=== PATIENT | male | born 1935 | race Caucasian/White ===

== ENCOUNTER 2020-12-09 11:59 | Inpatient (IN) | payer MEDICARE, OTHER ==
[~2020-12-09] VITALS: Ht 177.8 cm; Wt 105.5 kg
[2020-12-09] MEDS ORDERED: INDOCYANINE GREEN 25 MG VIAL ONE (12:02)
[2020-12-09] MEDS ORDERED: BUPIVACAINE/PF 0.5% ONE ×2 (12:02→15:44)
[2020-12-09] MEDS ORDERED: EPINEPHRINE 1 MG/ML, 1ML ONE (12:02)
[2020-12-09] MEDS ORDERED: FINA5TAB4 PO (12:39)
[2020-12-09] MEDS ORDERED: METF500T17 PO (12:39)
[2020-12-09] MEDS ORDERED: EZET10TA70 PO (12:39)
[2020-12-09] MEDS ORDERED: potassium chloride PO (12:39)
[2020-12-09] MEDS ORDERED: ASPI81TA45 PO (12:39)
[2020-12-09] MEDS ORDERED: CARV6.2512 PO (12:39)
[2020-12-09] MEDS ORDERED: LISI-170 PO (12:39)
[2020-12-09] MEDS ORDERED: FURO20TA3 PO (12:39)
[2020-12-09] MEDS ORDERED: LEVO175T5 PO (12:39)
[2020-12-09] MEDS ORDERED: CLOP75TA PO (12:39)
[2020-12-09] MEDS ORDERED: TERA2CAP3 PO (12:39)
[2020-12-09] MEDS ORDERED: GABA600T7 PO (12:39)
[2020-12-09] MEDS ORDERED: CHLORHEXIDINE 15 ML UDC ONE (12:43)
[2020-12-09 12:50] VITALS: BP 124/70
[2020-12-09] MEDS ORDERED: CHLORHEXIDINE 15 ML UDC PO ONE (13:00)
[2020-12-09] MEDS ORDERED: LACTATED RINGERS 1,000 ML IV SCH (13:00)
[2020-12-09] MEDS ORDERED: PROPOFOL 50 ML ONE (13:18)
[2020-12-09 13:19] LABS: BASOPHILS % (AUTO) 1 % (0-1); EOSINOPHILS % (AUTO) 4 % (1-7); LYMPHOCYTES % (AUTO) 10 % (22-44); MEAN CORPUSCULAR HEMOGLOBIN 27.4 pg (27.5-34.5); MEAN CORPUSCULAR HGB CONC 33.5 g/dL (33.2-36.2); MEAN PLATELET VOLUME 7.3 fL (7.4-10.4); MONOCYTES % (AUTO) 7 % (2-9); NEUTROPHILS % (AUTO) 78 % (42-75); PLATELET COUNT 214 x10^3/uL (130-400); RED BLOOD COUNT 4.01 x10^6/uL (4.38-5.82); RED CELL DISTRIBUTION WIDTH 17.8 % (9.4-14.8)
[2020-12-09 13:24] LABS: INTERNATIONAL NORMALIZED RATIO 1.08 (0.93-1.1); PROTHROMBIN TIME 11.5 Seconds (9.6-11.5)
[2020-12-09 13:27] LABS: CALCIUM 9.1 mg/dL (8.5-10.1); CHLORIDE 107 mmol/L (98-107)
[2020-12-09 13:33] LABS: ALANINE AMINOTRANSFERASE 26 U/L (12-78); ALBUMIN 3.7 g/dL (3.4-5.0); ALKALINE PHOSPHATASE 90 U/L (45-117); ANION GAP 7 mmol/L (5-15); BILIRUBIN,TOTAL 0.5 mg/dL (0.2-1.0); CREATININE 1.17 mg/dL (0.7-1.3); TOTAL PROTEIN 7.5 g/dL (6.4-8.2)
[2020-12-09] MEDS ORDERED: BUPIVACAINE/PF-EPI 0.5% 1:200K INFIL ONE (13:49)
[2020-12-09] MEDS ORDERED: FENTANYL PF 250 MCG/5ML ONE (13:54)
[2020-12-09] MEDS ORDERED: PROPOFOL 10 MG/ML, 20ML ONE (14:41)
[2020-12-09] MEDS ORDERED: ONDANSETRON 2MG/ML, 2ML ONE (14:42)
[2020-12-09] MEDS ORDERED: DEXAMETHASONE 4 MG/ML, 1ML ONE (14:42)
[2020-12-09] MEDS ORDERED: ROCURONIUM 10MG/ML,5ML ONE ×2 (14:42)
[2020-12-09] MEDS ORDERED: CEFOTETAN 2 GM ONE (14:42)
[2020-12-09] MEDS ORDERED: FENTANYL PF 100 MCG/2ML ONE ×2 (16:25→17:16)
[2020-12-09] MEDS ORDERED: LORazepam 1MG TABLET PO PRN (17:00)
[2020-12-09] MEDS ORDERED: PROMETHAZINE 25 MG/ML, 1ML IVPush PRN (17:00)
[2020-12-09] MEDS ORDERED: DIAZEPAM 5 MG/ML, 2ML IVPush PRN (17:00)
[2020-12-09] MEDS ORDERED: OXYcodone 5 MG/5 ML ORAL.SOL UDC PO PRN (17:00)
[2020-12-09] MEDS ORDERED: ACETAMINOPHEN 100 ML IVPB SCH (17:00)
[2020-12-09] MEDS ORDERED: EPHEDRINE 50 MG/ML, 1ML IVPush PRN (17:00)
[2020-12-09] MEDS ORDERED: morphine SULFATE 10 MG/ML, 1ML IVPush PRN (17:00)
[2020-12-09] MEDS ORDERED: DIPHENHYDRAMINE 50 MG/ML, 1ML IVPush PRN ×2 (17:00→19:00)
[2020-12-09] MEDS ORDERED: EPHEDRINE 50 MG/ML, 1ML IM PRN (17:00)
[2020-12-09] MEDS ORDERED: ONDANSETRON 2MG/ML, 2ML IVPush PRN ×2 (17:00→19:00)
[2020-12-09] MEDS ORDERED: MEPERIDINE/PF 25MG/0.5ML IVPush PRN (17:00)
[2020-12-09] MEDS ORDERED: D5%-0.45NACL+KCL 20MEQ 1,000 ML IV SCH (17:00)
[2020-12-09] MEDS ORDERED: LABETALOL 5MG/ML, 20ML IV PRN (17:00)
[2020-12-09] MEDS ORDERED: OXYcodone 5 MG/5 ML ORAL.SOL UDC ONE (17:16)
[2020-12-09] MEDS ORDERED: ACETAMINOPHEN 650 MG/20.3 ML UDC ONE (17:16)
[2020-12-09] MEDS: FENTANYL PF 100 MCG/2ML IV PRN ×3 (17:27→17:39)
[2020-12-09] MEDS: ACETAMINOPHEN 500 MG TABLET PO SCH ×2 (17:30→23:12)
[2020-12-09] MEDS ORDERED: METHOCARBAMOL 1,000 MG in DEXTROSE 5% 100 ML IV PRN (17:30)
[2020-12-09] MEDS ORDERED: HYDROmorphone 1 MG/ML, 1ML INJ IVPush PRN (18:00)
[2020-12-09] MEDS ORDERED: CALCIUM CARBONATE 500 MG TAB.CHEW PO PRN (19:00)
[2020-12-09] MEDS ORDERED: LORazepam 2 MG/ML, 1ML IVPush PRN (19:00)
[2020-12-09] MEDS: INSULIN LISPRO 100 UNITS/ML, PEN SQ-INSULIN SCH (19:00)
[2020-12-09] MEDS ORDERED: DEXAMETHASONE 4 MG/ML, 1ML IVPush PRN (19:00)
[2020-12-09] MEDS ORDERED: HALOPERIDOL 5 MG/ML IVPush PRN (19:00)
[2020-12-09] MEDS ORDERED: DIPHENHYDRAMINE 25 MG CAPSULE PO PRN (19:00)
[2020-12-09 20:00] VITALS: BP 129/74
[2020-12-09] MEDS ORDERED: TRAZODONE 50MG TABLET PO PRN (21:00)
[2020-12-09] MEDS: metFORMIN 500 MG TABLET PO SCH (21:35)
[2020-12-09] MEDS: FINASTERIDE 5 MG TABLET PO SCH (21:35)
[2020-12-09] MEDS: CARVEDILOL 6.25 MG TABLET PO SCH (21:37)
[2020-12-09] MEDS: EZETIMIBE 10 MG TABLET PO SCH (21:37)
[2020-12-09] MEDS: OXYcodone IR 5MG TABLET PO PRN (23:12)
[2020-12-09] MEDS: GABAPENTIN 250 MG/5 ML ORAL SOL PO SCH (23:13)
[2020-12-10 00:11] VITALS: BP 148/85
[2020-12-10] MEDS: INSULIN LISPRO 100 UNITS/ML, PEN SQ-INSULIN SCH ×2 (01:00→06:31)
[2020-12-10 04:07] VITALS: BP 132/70
[2020-12-10 04:21] LABS: BASOPHILS % (AUTO) 0 % (0-1); EOSINOPHILS % (AUTO) 0 % (1-7); LYMPHOCYTES % (AUTO) 5 % (22-44); MEAN CORPUSCULAR HEMOGLOBIN 27.6 pg (27.5-34.5); MEAN CORPUSCULAR HGB CONC 33.6 g/dL (33.2-36.2); MEAN PLATELET VOLUME 7.2 fL (7.4-10.4); MONOCYTES % (AUTO) 5 % (2-9); NEUTROPHILS % (AUTO) 90 % (42-75); PLATELET COUNT 190 x10^3/uL (130-400); RED BLOOD COUNT 3.55 x10^6/uL (4.38-5.82); RED CELL DISTRIBUTION WIDTH 17.8 % (9.4-14.8)
[2020-12-10 04:27] LABS: ANION GAP 5 mmol/L (5-15); CALCIUM 8.5 mg/dL (8.5-10.1); CHLORIDE 108 mmol/L (98-107)
[2020-12-10] MEDS: LEVOTHYROXINE 175 MCG TABLET PO SCH (05:22)
[2020-12-10] MEDS: ACETAMINOPHEN 500 MG TABLET PO SCH ×4 (05:22→23:24)
[2020-12-10] MEDS: ASPIRIN 81 MG TABLET EC PO SCH (06:26)
[2020-12-10 07:53] VITALS: BP 114/61
[2020-12-10] MEDS: OXYcodone IR 5MG TABLET PO PRN ×3 (10:14→20:34)
[2020-12-10] MEDS: TERAZOSIN 2MG CAPSULE PO SCH (10:15)
[2020-12-10] MEDS: metFORMIN 500 MG TABLET PO SCH ×2 (10:15→17:21)
[2020-12-10] MEDS: ENOXAPARIN 40 MG/0.4 ML SQ SCH (10:21)
[2020-12-10] MEDS: CARVEDILOL 6.25 MG TABLET PO SCH ×2 (10:21→20:34)
[2020-12-10 14:40] VITALS: BP 129/72
[2020-12-10 19:05] VITALS: BP 133/84
[2020-12-10] MEDS: EZETIMIBE 10 MG TABLET PO SCH (20:34)
[2020-12-10] MEDS: GABAPENTIN 250 MG/5 ML ORAL SOL PO SCH (22:20)
[2020-12-10] MEDS: FINASTERIDE 5 MG TABLET PO SCH (22:20)
[2020-12-11 02:41] VITALS: BP 121/75
[2020-12-11 03:55] LABS: BASOPHILS % (AUTO) 1 % (0-1); EOSINOPHILS % (AUTO) 3 % (1-7); LYMPHOCYTES % (AUTO) 13 % (22-44); MEAN CORPUSCULAR HEMOGLOBIN 27.8 pg (27.5-34.5); MEAN CORPUSCULAR HGB CONC 33.9 g/dL (33.2-36.2); MEAN PLATELET VOLUME 7.4 fL (7.4-10.4); MONOCYTES % (AUTO) 7 % (2-9); NEUTROPHILS % (AUTO) 76 % (42-75); PLATELET COUNT 186 x10^3/uL (130-400); RED BLOOD COUNT 3.42 x10^6/uL (4.38-5.82); RED CELL DISTRIBUTION WIDTH 18.1 % (9.4-14.8)
[2020-12-11 04:01] LABS: ANION GAP 5 mmol/L (5-15); CALCIUM 8.1 mg/dL (8.5-10.1); CHLORIDE 106 mmol/L (98-107); CREATININE 0.95 mg/dL (0.7-1.3)
[2020-12-11] MEDS: ASPIRIN 81 MG TABLET EC PO SCH (05:36)
[2020-12-11] MEDS: ACETAMINOPHEN 500 MG TABLET PO SCH ×3 (05:36→17:07)
[2020-12-11] MEDS: LEVOTHYROXINE 175 MCG TABLET PO SCH (05:36)
[2020-12-11 08:00] VITALS: BP 130/73
[2020-12-11] MEDS: metFORMIN 500 MG TABLET PO SCH ×2 (08:31→17:07)
[2020-12-11] MEDS: TERAZOSIN 2MG CAPSULE PO SCH (08:32)
[2020-12-11] MEDS: CARVEDILOL 6.25 MG TABLET PO SCH ×2 (08:33→20:47)
[2020-12-11] MEDS: ENOXAPARIN 40 MG/0.4 ML SQ SCH (10:30)
[2020-12-11] MEDS ORDERED: OXYC5TAB2 PO (11:28)
[2020-12-11 13:08] VITALS: BP 128/68
[2020-12-11] MEDS: FINASTERIDE 5 MG TABLET PO SCH (20:47)
[2020-12-11] MEDS: EZETIMIBE 10 MG TABLET PO SCH (20:47)
[2020-12-11] MEDS: GABAPENTIN 250 MG/5 ML ORAL SOL PO SCH (20:47)
[2020-12-11 20:50] VITALS: BP 169/83
[2020-12-12] MEDS: ACETAMINOPHEN 500 MG TABLET PO SCH ×2 (00:49→06:44)
[2020-12-12 00:55] VITALS: BP 146/82
[2020-12-12] MEDS: ASPIRIN 81 MG TABLET EC PO SCH (06:44)
[2020-12-12] MEDS: LEVOTHYROXINE 175 MCG TABLET PO SCH (06:44)
[2020-12-12 09:48] VITALS: BP 158/89
[2020-12-12] MEDS: TERAZOSIN 2MG CAPSULE PO SCH (09:53)
[2020-12-12] MEDS: metFORMIN 500 MG TABLET PO SCH (09:53)
[2020-12-12] MEDS: CARVEDILOL 6.25 MG TABLET PO SCH (09:53)
[2020-12-12] MEDS: ENOXAPARIN 40 MG/0.4 ML SQ SCH (10:30)
== END 2020-12-12 11:36 | disposition home or self-care (01) | DRG 331 ==
LOC: ORIP 11:59 → 3WST 18:38 → 4NE 12-11 13:53 → DCLOUNGE 12-12 11:18
PROVIDERS: ADMIT Surgery; ATTEND Surgery
PROC: 8E0W4CZ Robotic Assisted Procedure of Trunk Region, Percutaneous Endoscopic Approach (ICD-10-PCS; 2020-12-09)
PROC: 0DTL4ZZ Resection of Transverse Colon, Percutaneous Endoscopic Approach (ICD-10-PCS; principal; 2020-12-09 14:00)
PROC: 5A09357 Assistance with Respiratory Ventilation, Less than 24 Consecutive Hours, Continuous Positive Airway Pressure (ICD-10-PCS; 2020-12-11)
DX: C18.4 Malignant neoplasm of transverse colon (principal); Z20.822 Contact with and (suspected) exposure to COVID-19
CPT/HCPCS: 36415; 80048; 80053; 82962; 85025; 85610; 86140; 87635; 88309; 93005; 94660; G0378; J0171; J1100; J1650; J2405; J2704; J3010; C1765; J2800; J7120

== ENCOUNTER 2021-02-10 18:36 | Inpatient (IN) | payer MEDICARE, OTHER ==
[~2021-02-10] VITALS: Ht 177.8 cm; Wt 101.9 kg
[~2021-02-10 18:36] MED LIST: ASPI81TA45 PO; CARV6.2512 PO; CLOP75TA PO; EZET10TA70 PO; FINA5TAB4 PO; FURO20TA3 PO; GABA600T7 PO; LEVO175T5 PO; LISI-170 PO; METF500T17 PO; OXYC5TAB2 PO; TERA2CAP3 PO; potassium chloride PO
--- NOTE | 2021-02-10 18:50 | NUR ---
PT BIB EMS FOR RECTAL BLEED, BRIGHT RED BLOOD, THAT STARTED TODAY. PT ALSO STATES HE HAS BEEN SOB WHEN EXERTING AND BEEN EXPERIENCING DIZZINESS. PT HX OF COLON CANCER AND HAD SIGNIFICANT PORTIONS OF BOWEL REMOVED 2 MONTHS AGO AT [facility]. PT CONNECTED TO VS EQUIPMENT. PT BELONGINGS AND CALL LIGHT WITHIN REACH.
--- NOTE | 2021-02-10 18:52 | NUR ---
REPORT TO YENI GRIGGS
--- NOTE | 2021-02-10 19:02 | NUR ---
BEDSIDE REPORT RECEIVED FROM MARITZA JAIME
--- NOTE | 2021-02-10 19:12 | NUR ---
ERP AT BEDSIDE
[2021-02-10] MEDS ORDERED: SODIUM CHLORIDE FLUSH 10ML SYR IVF ONE (19:30)
[2021-02-10] MEDS ORDERED: SODIUM CHLORIDE 0.9% 1,000ML IVBOLUS ONE (19:30)
[2021-02-10 19:43] LABS: BASOPHILS % (AUTO) 1 % (0-1); EOSINOPHILS % (AUTO) 1 % (1-7); LYMPHOCYTES % (AUTO) 8 % (22-44); MEAN CORPUSCULAR HEMOGLOBIN 27.1 pg (27.5-34.5); MEAN CORPUSCULAR HGB CONC 33.3 g/dL (33.2-36.2); MONOCYTES % (AUTO) 6 % (2-9); NEUTROPHILS % (AUTO) 85 % (42-75); PLATELET COUNT 210 x10^3/uL (130-400); RED BLOOD COUNT 3.83 x10^6/uL (4.38-5.82); RED CELL DISTRIBUTION WIDTH 18.5 % (9.4-14.8)
[2021-02-10 19:51] LABS: ALBUMIN 3.3 g/dL (3.4-5.0); ANION GAP 11 mmol/L (5-15); CALCIUM 8.5 mg/dL (8.5-10.1); CHLORIDE 106 mmol/L (98-107); CREATININE 1.36 mg/dL (0.7-1.3)
[2021-02-10 19:54] LABS: INTERNATIONAL NORMALIZED RATIO 1.07 (0.93-1.1); PROTHROMBIN TIME 11.4 Seconds (9.6-11.5)
[2021-02-10 20:10] LABS: <PLATELET ESTIMATE> ADEQUATE; <PLT MORPHOLOGY> NORMAL PLT MORPH; ANISOCYTOSIS 1+; MICROCYTOSIS 1+; OVALOCYTES 1+
[2021-02-10 20:13] LABS: ACANTHOCYTES 1+
--- NOTE | 2021-02-10 21:25 | NUR ---
HOSPITALIST AT BEDSIDE
[2021-02-10] MEDS ORDERED: MELATONIN 5 MG TABLET PO PRN (22:00)
[2021-02-10] MEDS ORDERED: ACETAMINOPHEN 500 MG TABLET PO PRN (22:00)
[2021-02-10] MEDS ORDERED: LABETALOL 5MG/ML, 20ML IVPush PRN (22:00)
[2021-02-10] MEDS ORDERED: POLYETHYLENE GLYCOL 17 GM PACKET PO PRN (22:00)
[2021-02-10] MEDS ORDERED: morphine SULFATE 10 MG/ML, 1ML IVPush PRN (22:00)
[2021-02-10] MEDS ORDERED: SODIUM CHLORIDE 0.9% 1,000 ML IV ONE (22:00)
[2021-02-10] MEDS ORDERED: SODIUM CHLORIDE FLUSH 10ML SYR IVF PRN (22:00)
[2021-02-10] MEDS ORDERED: GUAIFENESIN/DM 200-20MG, 10ML UDC PO PRN (22:00)
[2021-02-10] MEDS ORDERED: ONDANSETRON 2MG/ML, 2ML IVPush PRN (22:00)
[2021-02-10] MEDS ORDERED: TERA2CAP3 PO (22:09)
[2021-02-10] MEDS ORDERED: CLOP75TA52 PO (22:09)
[2021-02-10] MEDS ORDERED: GABA-827 PO (22:09)
[2021-02-10] MEDS ORDERED: POTA20TA14 PO (22:09)
[2021-02-10] MEDS ORDERED: CARV6.252 PO (22:09)
--- NOTE | 2021-02-10 22:45 | NUR ---
Pt to be admitted to [facility], room 494. Report called to JOLLY JAIME.
[2021-02-10 23:27] VITALS: BP 156/99
[2021-02-10] MEDS: LACTATED RINGERS 1,000 ML IV SCH (23:28)
[2021-02-11 00:35] VITALS: BP 158/96
[2021-02-11 05:36] LABS: BASOPHILS % (AUTO) 1 % (0-1); EOSINOPHILS % (AUTO) 3 % (1-7); LYMPHOCYTES % (AUTO) 14 % (22-44); MEAN CORPUSCULAR HEMOGLOBIN 27.1 pg (27.5-34.5); MEAN CORPUSCULAR HGB CONC 33.5 g/dL (33.2-36.2); MEAN PLATELET VOLUME 7.5 fL (7.4-10.4); MONOCYTES % (AUTO) 8 % (2-9); NEUTROPHILS % (AUTO) 75 % (42-75); PLATELET COUNT 217 x10^3/uL (130-400); RED BLOOD COUNT 3.73 x10^6/uL (4.38-5.82); RED CELL DISTRIBUTION WIDTH 17.9 % (9.4-14.8)
[2021-02-11 05:47] LABS: ANION GAP 8 mmol/L (5-15); CALCIUM 8.7 mg/dL (8.5-10.1); CHLORIDE 106 mmol/L (98-107)
[2021-02-11 05:48] LABS: CREATININE 0.97 mg/dL (0.7-1.3)
[2021-02-11 07:12] VITALS: BP 160/94
[2021-02-11] MEDS: LACTATED RINGERS 1,000 ML IV SCH (09:23)
[2021-02-11 13:46] VITALS: BP 162/80
[2021-02-11 21:13] VITALS: BP 176/129
[2021-02-11 21:24] VITALS: BP 170/130
[2021-02-11 21:50] VITALS: BP 154/93
[2021-02-12] VITALS (12 sets, daily range): BP systolic 99–153; BP diastolic 63–91
[2021-02-12] MEDS ORDERED: LORazepam 2 MG/ML, 1ML ONE (01:54)
[2021-02-12] MEDS: QUETIAPINE 25MG TABLET PO ONE ×2 (02:00→03:02)
[2021-02-12] MEDS ORDERED: LORazepam 2 MG/ML, 1ML IVPush ONE ×2 (02:00→03:30)
[2021-02-12] MEDS ORDERED: HALOPERIDOL 5 MG/ML IV ONE (04:00)
[2021-02-12 10:50] LABS: BASOPHILS % (AUTO) 1 % (0-1); EOSINOPHILS % (AUTO) 2 % (1-7); LYMPHOCYTES % (AUTO) 11 % (22-44); MEAN CORPUSCULAR HEMOGLOBIN 27.5 pg (27.5-34.5); MEAN CORPUSCULAR HGB CONC 33.8 g/dL (33.2-36.2); MEAN PLATELET VOLUME 7.6 fL (7.4-10.4); MONOCYTES % (AUTO) 7 % (2-9); NEUTROPHILS % (AUTO) 79 % (42-75); PLATELET COUNT 216 x10^3/uL (130-400); RED BLOOD COUNT 3.22 x10^6/uL (4.38-5.82); RED CELL DISTRIBUTION WIDTH 18.1 % (9.4-14.8)
[2021-02-12 11:00] LABS: INTERNATIONAL NORMALIZED RATIO 1.1 (0.93-1.1); PROTHROMBIN TIME 11.7 Seconds (9.6-11.5)
[2021-02-12] MEDS ORDERED: OMNIPAQUE 350 MG/ML, 100ML BOTTLE ONE (11:20)
[2021-02-12] MEDS ORDERED: PROPOFOL 10 MG/ML, 20ML ONE ×3 (14:54→15:19)
[2021-02-13 00:04] VITALS: BP 149/92
[2021-02-13 02:12] LABS: ALANINE AMINOTRANSFERASE 20 U/L (12-78); ALBUMIN 2.6 g/dL (3.4-5.0); ANION GAP 3 mmol/L (5-15); CALCIUM 8.3 mg/dL (8.5-10.1); CHLORIDE 110 mmol/L (98-107); CREATININE 0.83 mg/dL (0.7-1.3)
[2021-02-13 02:15] LABS: ALKALINE PHOSPHATASE 74 U/L (45-117); BILIRUBIN,TOTAL 0.5 mg/dL (0.2-1.0)
[2021-02-13 08:18] VITALS: BP 153/89
[2021-02-13 14:37] VITALS: BP 107/69
[2021-02-13 20:12] VITALS: BP 114/76
[2021-02-14 01:44] VITALS: BP 153/89
[2021-02-14 06:39] VITALS: BP 156/79
[2021-02-14 12:28] LABS: BASOPHILS % (AUTO) 1 % (0-1); EOSINOPHILS % (AUTO) 2 % (1-7); LYMPHOCYTES % (AUTO) 9 % (22-44); MEAN CORPUSCULAR HGB CONC 34.2 g/dL (33.2-36.2); MEAN PLATELET VOLUME 7.4 fL (7.4-10.4); MONOCYTES % (AUTO) 7 % (2-9); NEUTROPHILS % (AUTO) 82 % (42-75); PLATELET COUNT 179 x10^3/uL (130-400); RED BLOOD COUNT 2.96 x10^6/uL (4.38-5.82); RED CELL DISTRIBUTION WIDTH 18.1 % (9.4-14.8)
[2021-02-14 12:38] LABS: ALBUMIN 2.8 g/dL (3.4-5.0); ANION GAP 5 mmol/L (5-15); CALCIUM 8.1 mg/dL (8.5-10.1); CHLORIDE 107 mmol/L (98-107); CREATININE 1.02 mg/dL (0.7-1.3)
[2021-02-14 14:34] VITALS: BP 128/79
== END 2021-02-14 18:10 | disposition home or self-care (01) | DRG 378 ==
LOC: ED 22:03 → EDIP 22:16 → OBSVTOIN 22:16 → 4EST 23:08
PROVIDERS: ADMIT Internal Medicine; ATTEND Family Medicine
PROC: 30233N1 Transfusion of Nonautologous Red Blood Cells into Peripheral Vein, Percutaneous Approach (ICD-10-PCS; 2021-02-12)
PROC: 0DCP8ZZ Extirpation of Matter from Rectum, Via Natural or Artificial Opening Endoscopic (ICD-10-PCS; principal; 2021-02-12 14:00)
DX: K57.31 Diverticulosis of large intestine without perforation or abscess with bleeding (principal); D62 Acute posthemorrhagic anemia; N17.9 Acute kidney failure, unspecified; E66.01 Morbid (severe) obesity due to excess calories; E78.5 Hyperlipidemia, unspecified; F19.10 Other psychoactive substance abuse, uncomplicated; I10 Essential (primary) hypertension; I25.10 Atherosclerotic heart disease of native coronary artery without angina pectoris; J44.9 Chronic obstructive pulmonary disease, unspecified; N28.1 Cyst of kidney, acquired; Z20.822 Contact with and (suspected) exposure to COVID-19; N40.0 Benign prostatic hyperplasia without lower urinary tract symptoms; Z68.31 Body mass index [BMI] 31.0-31.9, adult; Z79.02 Long term (current) use of antithrombotics/antiplatelets; Z79.82 Long term (current) use of aspirin; Z85.038 Personal history of other malignant neoplasm of large intestine; Z87.891 Personal history of nicotine dependence; Z95.5 Presence of coronary angioplasty implant and graft
CPT/HCPCS: 36415; 74174; 80048; 80053; 80069; 82040; 83735; 85014; 85018; 85025; 85610; 85730; 86850; 86900; 86923; 87635; 93005; 96360; 96361; 99291; G0378; J2704; Q9967; J1630; J2060; J7030; J7120; P9016